=== PATIENT | female | born 1980 | race Caucasian/White ===

== ENCOUNTER 2016-11-11 06:54 | Day surgery (SDC) | payer BC, OTHER ==
[~2016-11-11 06:54] MED LIST: ceFAZolin 2 GM/DEXTROSE 100 ML IV ONE
[2016-11-11] MEDS ORDERED: LIDOCAINE 1% 5 ML SDV ID PRN (07:26)
[2016-11-11] MEDS ORDERED: LR 1,000 ML IV ONE (07:26)
[2016-11-11] MEDS ORDERED: LIDOCAINE 1% 2 ML INJ ONE (07:28)
[2016-11-11] MEDS ORDERED: LIDOCAINE 1% 30 ML SDV ONE (07:55)
[2016-11-11] MEDS ORDERED: BUPIVACAINE 0.5% 30 ML SDV ONE (07:55)
[2016-11-11] MEDS ORDERED: MIDAZOLAM 2 MG/2 ML VIAL ONE (08:23)
[2016-11-11] MEDS ORDERED: LIDOCAINE 2% 5 ML SDV ONE (08:32)
[2016-11-11] MEDS ORDERED: fentaNYL 100 MCG/2 ML INJ ONE (08:33)
[2016-11-11] MEDS ORDERED: PROPOFOL/EMULSION 500 MG/50 ML BOTTLE IV ONE (08:33)
[2016-11-11] MEDS ORDERED: ACETAMINOPHEN 500 MG TAB ONE (10:00)
[2016-11-12 15:39] LABS: FINAL DIAGNOSIS See Comments; MICROSCOPIC DESCRIPTION See Comments
== END 2016-11-11 10:35 | disposition home or self-care (01) ==
LOC: FSGY 06:54
PROVIDERS: ATTEND Surgery
PROC: 07B20ZX Excision of Left Neck Lymphatic, Open Approach, Diagnostic (ICD-10-PCS; principal; 2016-11-11 08:30)
DX: I88.9 Nonspecific lymphadenitis, unspecified (principal); K58.9 Irritable bowel syndrome, unspecified; K90.0 Celiac disease
CPT/HCPCS: 88184-90; 88185-91; J0690; J2250; J2704; J3010